=== PATIENT | male | born 1935 | race Native Hawaiian/Other Pacific Islander ===

== ENCOUNTER 2020-11-11 14:38 | Outpatient (CLI) | payer OTHER | END 2020-11-11 22:10 | disposition home or self-care (01) | LOC: RAD 14:38 | PROVIDERS: ATTEND Nurse Practitioner Family | DX: R06.89 Other abnormalities of breathing (principal) ==

== ENCOUNTER 2020-11-18 14:31 | Outpatient (CLI) | payer OTHER | END 2020-11-18 22:58 | disposition home or self-care (01) | LOC: US 14:31 | PROVIDERS: ATTEND Podiatrist | DX: I73.9 Peripheral vascular disease, unspecified (principal) ==